=== PATIENT | male | born 1950 | race Caucasian/White ===

== ENCOUNTER 2016-09-19 12:35 | Observation (INO) | payer OTHER ==
[~2016-09-19] VITALS: Ht 172.7 cm; Wt 124.3 kg
[~2016-09-19 12:35] MED LIST: ALLOPURINOL100 MG PO; AMITRIPTYLINE H25 MG PO; ASPIR 8181 M1 PO; ASPIR-MOX 325325 M1 PO; BENTYL20 MG PO; BUSPAR10 MG PO; COLCRYS0.6 MG PO; CYMBALTA60 MG PO; DOXYCYCLINE HY100 M3 PO; FENTANYL1 EAC4 TD; FLEXERIL10 MG PO; GABAPENTIN600 MG PO; GABAPENTIN800 MG PO; HYDROCHLOROTH12.5 M1 PO; INDERIDE 40/1 TABLET PO; KEPPRA1000 MG PO; LASIX20 MG PO; LEXAPRO20 MG PO; LOPRESSOR25 MG PO; METFORMIN HCL1000 MG PO; MUPIROCIN15 GM TP; NEURONTIN300 MG PO; NITROSTAT0.4 MG SL; NYSTATIN15 GM TP; OXYCODONE-APAP1 EACH PO; PERCOCET 5/31 TABLET PO; PRAVASTATIN SOD40 MG PO; REMERON15 M1 PO; ROPINIROLE HCL0.5 MG PO; TYLENOL ARTHRI650 M2 PO; ULTRAM50 MG PO; XANAX0.5 MG PO; XANAX1 MG PO; ZOFRAN4 MG PO; [UNRECOGNIZED DRUG - OTHER] IM; predniSONE PO
[2016-09-19 13:28] LABS: HEMATOCRIT 44.6 % (38.0-50.0); MCH 29.1 PG (29.0-34.0); MCHC 34.1 G/DL (30.0-36.0); MCV 85.4 FL (86-99); MEAN PLAT.VOLUME 11.4 uM^3 (9.0-12.4); PLATELET COUNT 224 K/uL (156-360); RBC DIS.WIDTH-SD 39.8 % (39-53); RED BLOOD COUNT 5.22 M/uL (4.00-5.50); WHITE BLOOD COUNT 11.3 K/uL (4.1-10.2)
[2016-09-19 13:44] LABS: CHLORIDE 103 mEq/L (99-109); POTASSIUM 4.3 mEq/L (3.7-5.4); SODIUM 137 mEq/L (136-147)
[2016-09-19 13:45] LABS: GLUCOSE 99 mg/dL (70-99)
[2016-09-19 13:47] LABS: ANION GAP 12 MEQ/L (2-14)
[2016-09-19 13:49] LABS: GFR ESTIMATE (CALCULATED) 46 mL/min/; TROP-I INTERPRETATION NEGATIVE; TROPONIN-I 0.02 ng/mL (0.0-0.30)
[2016-09-19 13:50] LABS: UREA NITROGEN (BUN) 20 mg/dL (9-23)
[2016-09-19 17:29] LABS: TOTAL BILIRUBIN 0.6 mg/dL (0.0-1.0)
[2016-09-19 17:30] LABS: ALKALINE PHOSPHATASE 113 IU/L (3-129)
[2016-09-19 17:33] LABS: DIRECT BILIRUBIN 0.2 mg/dL (0.0-0.3)
[2016-09-19 17:34] LABS: LIPASE 20 U/L (1.0-51.0)
[2016-09-19 17:52] LABS: EOSINOPHIL (%) 0.9 % (0-5); EOSINOPHIL COUNT 0.1 K/uL (0-0.3); IMMATURE GRANULOCYTE (%) 0.2 % (0.0-0.7); LYMPHOCYTE COUNT 3.3 K/uL (1.0-2.8); MONOCYTE (%) 5.6 % (3-12); MONOCYTE COUNT 0.6 K/uL (0-0.8); NEUTROPHIL (%) 62.2 % (45-76); NEUTROPHIL COUNT 6.7 K/uL (1.8-6.4)
[2016-09-19] MEDS ORDERED: STOOL SOFTENER100 M1 PO (19:47)
[2016-09-19] MEDS ORDERED: TAMSULOSIN HCL0.4 MG PO (19:47)
[2016-09-19] MEDS ORDERED: DITROPAN XL10 MG PO (19:48)
[2016-09-19] MEDS ORDERED: B-COMPLEX-VITA1 EACH PO (19:48)
[2016-09-19] MEDS ORDERED: LASIX20 MG PO (19:48)
[2016-09-19] MEDS ORDERED: DURAGESIC25 MCG TD (19:50)
[2016-09-19 21:21] LABS: ADD MIUA? NO; BILIRUBIN SMALL; BLOOD NEGATIVE; COLOR YELLOW ((YELLOW)); GLUCOSE (STRIP) NEGATIVE; KETONES NEGATIVE; LEUKOCYTES NEGATIVE; NITRITE NEGATIVE; PH, URINE 6.5 (5-8); PROTEIN (STRIP) NEGATIVE; SPECIFIC GRAVITY 1.014 (1.000-1.030); UCUL ADDED? NO
[2016-09-19 21:56] LABS: TROP-I INTERPRETATION NEGATIVE; TROPONIN-I 0.02 ng/mL (0.0-0.30)
[2016-09-19 22:36] VITALS: BP 142/76
[2016-09-20 03:31] VITALS: BP 114/59
[2016-09-20 06:56] LABS: TROP-I INTERPRETATION NEGATIVE; TROPONIN-I 0.02 ng/mL (0.0-0.30)
[2016-09-20 08:12] VITALS: BP 91/55
[2016-09-20 10:00] VITALS: BP 114/71
[2016-09-20 12:02] VITALS: BP 103/69
[2016-09-20 16:08] LABS: INFLUENZA A VIRAL ANTIGEN NEGATIVE; INFLUENZA B VIRAL ANTIGEN NEGATIVE
[2016-09-20 16:11] VITALS: BP 121/60
== END 2016-09-20 20:40 | disposition home or self-care (01) ==
LOC: EME 12:35 → EDOF 21:06 → 5WEST 21:06
PROVIDERS: Emergency Medicine; Nurse Practitioner Adult Health
PROC: B246ZZZ Ultrasonography of Right and Left Heart (ICD-10-PCS; principal; 2016-09-20)
DX: R07.9 Chest pain, unspecified (principal); M25.512 Pain in left shoulder; R06.02 Shortness of breath; I70.0 Atherosclerosis of aorta; I35.2 Nonrheumatic aortic (valve) stenosis with insufficiency; I27.2 Other secondary pulmonary hypertension; I10 Essential (primary) hypertension; R94.31 Abnormal electrocardiogram [ECG] [EKG]; Z95.3 Presence of xenogenic heart valve; Z86.69 Personal history of other diseases of the nervous system and sense organs; Z82.0 Family history of epilepsy and other diseases of the nervous system; Z88.0 Allergy status to penicillin; Z88.8 Allergy status to other drugs, medicaments and biological substances
CPT/HCPCS: 71020; 80048; 80076; 81003; 83605; 83690; 84484; 85025; 85027; 87502; 93005; 93306; 99281; 99285; G0378; J2405; J7030

== ENCOUNTER 2016-12-22 19:46 | Emergency (ER) | payer OTHER ==
[~2016-12-22] VITALS: Ht 172.7 cm; Wt 127.2 kg
[~2016-12-22 19:46] MED LIST changes: +B-COMPLEX-VITA1 EACH PO; +DITROPAN XL10 MG PO; +DURAGESIC25 MCG TD; +STOOL SOFTENER100 M1 PO; +TAMSULOSIN HCL0.4 MG PO
[2016-12-22 20:23] LABS: POINT-OF-CARE METER ID UU14100415
[2016-12-22 20:24] LABS: EOSINOPHIL (%) 0.1 % (0-5); HEMATOCRIT 40.6 % (38.0-50.0); IMMATURE GRANULOCYTE (%) 0.5 % (0.0-0.7); IMMATURE GRANULOCYTE COUNT 0.1 K/uL; INSTRUMENT ABS NEUTROPHIL CT 10.3 K/uL; LYMPHOCYTE COUNT 0.6 K/uL (1.0-2.8); MCH 28.5 PG (29.0-34.0); MCHC 33.3 G/DL (30.0-36.0); MCV 85.7 FL (86-99); MEAN PLAT.VOLUME 11.7 uM^3 (9.0-12.4); MONOCYTE (%) 1.4 % (3-12); MONOCYTE COUNT 0.2 K/uL (0-0.8); NEUTROPHIL (%) 92.3 % (45-76); NEUTROPHIL COUNT 10.3 K/uL (1.8-6.4); PLATELET COUNT 175 K/uL (156-360); RBC DIS.WIDTH-CV 12.6 % (11.8-14.6); RBC DIS.WIDTH-SD 39.3 % (39-53); RED BLOOD COUNT 4.74 M/uL (4.00-5.50)
[2016-12-22 20:26] LABS: WHITE BLOOD COUNT 11.1 K/uL (4.1-10.2)
[2016-12-22 20:30] LABS: CARBON DIOXIDE (BICARBONATE) 27.9 MEQ/L (20-31)
[2016-12-22 20:33] LABS: CHLORIDE 105 mEq/L (99-109); POTASSIUM 4.1 mEq/L (3.7-5.4); SODIUM 138 mEq/L (136-147)
[2016-12-22 20:35] LABS: GLUCOSE 142 mg/dL (70-99)
[2016-12-22 20:36] LABS: ANION GAP 10 MEQ/L (2-14); INTER. NORMALIZED RATIO 1.1; PROTHROMBIN TIME 10.9 (9.2-11.2); PTT 28.7 (25-32)
[2016-12-22 20:37] LABS: TOTAL BILIRUBIN 0.9 mg/dL (0.0-1.0)
[2016-12-22 20:39] LABS: ALKALINE PHOSPHATASE 93 IU/L (3-129); GFR ESTIMATE (CALCULATED) 50 mL/min/
[2016-12-22 20:40] LABS: UREA NITROGEN (BUN) 18 mg/dL (9-23)
[2016-12-22 20:42] LABS: CREATINE KINASE 392 IU/L (1-294); TOTAL CK 392 IU/L (1-294)
[2016-12-22 20:47] LABS: TROP-I INTERPRETATION NEGATIVE; TROPONIN-I 0.02 ng/mL (0.0-0.30)
[2016-12-22 20:48] LABS: CK-MB 4.1 ng/mL (0.0-4.9)
[2016-12-23 00:19] LABS: ADD MIUA? NO; BILIRUBIN NEGATIVE; BLOOD NEGATIVE; COLOR YELLOW ((YELLOW)); GLUCOSE (STRIP) NEGATIVE; KETONES 5; LEUKOCYTES NEGATIVE; NITRITE NEGATIVE; PROTEIN (STRIP) NEGATIVE; SPECIFIC GRAVITY 1.017 (1.000-1.030); UCUL ADDED? NO; UROBILINOGEN 0.2 MG/DL (0.2-1.0)
[2016-12-23 02:26] VITALS: BP 178/80
== END 2016-12-23 02:35 | disposition short-term general hospital (02) ==
LOC: EME 19:46
PROVIDERS: Emergency Medicine
DX: G82.20 Paraplegia, unspecified (principal); G40.909 Epilepsy, unspecified, not intractable, without status epilepticus; E11.65 Type 2 diabetes mellitus with hyperglycemia; Z88.0 Allergy status to penicillin; Z88.8 Allergy status to other drugs, medicaments and biological substances; Z98.1 Arthrodesis status; Z95.2 Presence of prosthetic heart valve; I10 Essential (primary) hypertension
CPT/HCPCS: 70450; 71010; 72128; 80053; 80177 90; 81003; 82550; 82553; 82803; 82948; 83605; 84484; 85025; 85610; 85730; 86900; 86901; 93005; 99281; 99285; J1100; J2060; J2250

== ENCOUNTER → 2017-04-19 | Outpatient (CLI) | payer OTHER ==
[~2017-04-19] VITALS: Ht 175.3 cm; Wt 111.1 kg
[~2017-04-19] MED LIST changes: -KEPPRA1000 MG PO; +KEPPRA750 MG PO; +OXYCODONE HCL10 MG PO; +ZOLOFT100 MG PO
[2017-04-19 11:58] LABS: POINT-OF-CARE METER ID UU14107333
[2017-04-19 13:20] LABS: POINT-OF-CARE METER ID UU13113819
== END | disposition home or self-care (01) ==
LOC: AMB 11:08
PROVIDERS: Internal Medicine Gastroenterology
DX: D12.5 Benign neoplasm of sigmoid colon (principal); K63.5 Polyp of colon; K29.60 Other gastritis without bleeding; B96.81 Helicobacter pylori [H. pylori] as the cause of diseases classified elsewhere; E11.9 Type 2 diabetes mellitus without complications; I10 Essential (primary) hypertension; E66.01 Morbid (severe) obesity due to excess calories; Z68.36 Body mass index [BMI] 36.0-36.9, adult; G40.909 Epilepsy, unspecified, not intractable, without status epilepticus; Z79.82 Long term (current) use of aspirin; Z88.0 Allergy status to penicillin
CPT/HCPCS: 82948; 88305; 88342 TC; J2250

== ENCOUNTER 2018-02-23 19:00 | Emergency (ER) | payer OTHER ==
[~2018-02-23] VITALS: Ht 175.3 cm; Wt 112.8 kg
[~2018-02-23 19:00] MED LIST changes: +ACCU-CHEK AVIV1 EAC2 MC; +ALPRAZOLAM0.5 MG PO; +ASPIR-LOW81 MG PO; +ATIVAN0.5 MG PO; +CYANOCOBALAM1000 MCG PO; +FENTANYL1 EAC5 TD; +FLOMAX0.4 MG PO; +IMDUR30 MG PO; +KEPPRA1000 MG PO; +LEVAQUIN750 MG PO; +REQUIP0.5 MG PO; +ULTRAVATE 0.05%15 GM TP; +VITAMIN B-6100 MG PO
[2018-02-23 20:18] LABS: HEMOGLOBIN 13.5 G/DL (12.5-16.6); MCHC 33.8 G/DL (30.0-36.0); MCV 88.9 FL (86-99); RBC DIS.WIDTH-CV 13.1 % (11.8-14.6); RBC DIS.WIDTH-SD 42.8 % (39-53); WHITE BLOOD COUNT 7.6 K/uL (4.1-10.2)
[2018-02-23 20:27] LABS: CHLORIDE 102 mEq/L (99-109); POTASSIUM 4.6 mEq/L (3.7-5.4); SODIUM 139 mEq/L (136-147)
[2018-02-23 20:28] LABS: GLUCOSE 92 mg/dL (70-99)
[2018-02-23 20:32] LABS: CREATININE 1.1 mg/dL (0.6-1.3); GFR ESTIMATE (CALCULATED) > 59 mL/min/ (58.99-99999)
[2018-02-23 20:33] LABS: UREA NITROGEN (BUN) 12 mg/dL (9-23)
[2018-02-23 21:33] LABS: PLAT.SUFFICIENCY DECREASED; PLATELET COUNT 134 K/uL (156-360)
[2018-02-23 22:07] VITALS: BP 156/103
== END 2018-02-23 22:09 | disposition home or self-care (01) ==
LOC: EME 19:00
DX: S40.012A Contusion of left shoulder, initial encounter (principal); W18.30XA Fall on same level, unspecified, initial encounter; E78.5 Hyperlipidemia, unspecified; E11.9 Type 2 diabetes mellitus without complications; R56.9 Unspecified convulsions; F41.9 Anxiety disorder, unspecified; Z87.442 Personal history of urinary calculi; Z95.2 Presence of prosthetic heart valve; Z98.1 Arthrodesis status; Z88.0 Allergy status to penicillin; Z88.8 Allergy status to other drugs, medicaments and biological substances
CPT/HCPCS: 71045; 73030; 73070; 80048; 85027; 93005; 99281; 99284